=== PATIENT | female | born 1950 | race Caucasian/White ===

== ENCOUNTER 2017-08-05 18:39 | Inpatient (IN) | payer OTHER ==
[~2017-08-05] VITALS: Ht 165.1 cm; Wt 90.8 kg
[2017-08-05] MEDS ORDERED: ASPirin 325 MG TAB PO ONE (19:30)
[2017-08-05] MEDS ORDERED: METOPROLOL TARTRATE 50 MG TAB PO ONE (19:30)
[2017-08-05 19:45] LABS: Basophils # (auto) 0 uL; Basophils % (auto) 0.2 % (0.0-2.0); Eosinophils # (auto) 0.2 uL; Eosinophils % (auto) 1.6 % (0.0-7.0); Hematocrit 44.4 % (36.0-46.0); Hemoglobin 15.3 g/dL (12.2-16.2); Lymphocytes # (auto) 3.5 uL; Lymphocytes % (auto) 33.4 % (10.0-50.0); Mean Corpuscular Hgb Conc. 34.5 g/dL (32.0-36.0); Mean Corpuscular Volume 98.5 fL (80.0-100.0); Monocytes # (auto) 0.6 uL; Monocytes % (auto) 5.3 % (0.0-12.0); Neutrophils # (auto) 6.2 uL; Neutrophils % (auto) 59.5 % (37.0-80.0); Nucleated Red Blood Cells % 0.2 %; Platelet Count (auto) 334 10^3/uL (140-450); Red Cell Distribution Width 13.8 % (11.8-14.3); White Blood Cell 10.4 10^3/uL (4.4-10.8)
[2017-08-05 19:53] LABS: INR 0.88 (0.9-1.15); Partial Thromboplastin Time 26.6 sec (22.64-33.71); Prothrombin Time 9.6 sec (9.37-12.3)
[2017-08-05 20:04] LABS: Alanine Aminotransferase 26 U/L (13-56); Albumin 3.7 g/dL (3.4-5.0); Alkaline Phosphatase 100 U/L (45-117); Anion Gap 10 (5-15); Aspartate Aminotransferase 22 U/L (15-37); BUN/Creatinine Ratio 15.4; Bilirubin, Total 0.3 mg/dL (0.2-1.0); Blood Urea Nitrogen 12 mg/dL (7-18); Calcium 8.8 mg/dL (8.5-10.1); Carbon Dioxide 22 mmol/L (21-32); Chloride 107 mmol/L (98-107); GFR African American 94 mL/min; GFR Non-African American 78 mL/min; Glucose 151 mg/dL (74-106); Magnesium 2.4 mg/dL (1.6-2.6); Sodium 139 mmol/L (136-145); Total Protein 7.9 g/dL (6.4-8.2)
[2017-08-05] MEDS ORDERED: ACETAMINOPHEN 325 MG TAB PO PRN (22:00)
[2017-08-05] MEDS ORDERED: NITROGLYCERIN 0.4 MG SL TAB SL PRN (22:00)
[2017-08-05] MEDS ORDERED: METOPROLOL TARTRATE 25 MG TAB PO SCH (22:00)
[2017-08-05] MEDS ORDERED: TEMAZEPAM 15 MG CAP PO PRN (22:00)
[2017-08-05] MEDS ORDERED: ENOXAPARIN SOD 40 MG/0.4 ML SYRINGE SC ONE (22:00)
[2017-08-05] MEDS ORDERED: HYDROcodone-ACET 5/325MG TAB PO PRN (22:00)
[2017-08-05] MEDS ORDERED: ONDANSETRON HCL 4 MG/2 ML VIAL IV PRN (22:00)
[2017-08-05] MEDS ORDERED: MORPHINE SULFATE 10 MG/ML INJ 1ML SDV IV PRN (22:00)
[2017-08-05 22:22] LABS: Urine Bacteria NONE SEEN /hpf (None Seen); Urine Blood TRACE /uL (Negative); Urine Mucus FEW (None Seen); Urine Specific Gravity 1.022 (1.001-1.035); Urine WBC 2 /hpf (0 - 5)
[2017-08-06] MEDS: FAMOTIDINE 20 MG TAB PO SCH ×3 (00:06→21:45)
[2017-08-06 02:38] LABS: Basophils # (auto) 0.1 uL; Eosinophils # (auto) 0.2 uL; Hematocrit 41.1 % (36.0-46.0); Hemoglobin 13.9 g/dL (12.2-16.2); Lymphocytes # (auto) 3.8 uL; Lymphocytes % (auto) 38.9 % (10.0-50.0); Mean Corpuscular Hgb Conc. 33.7 g/dL (32.0-36.0); Mean Corpuscular Volume 97.9 fL (80.0-100.0); Monocytes # (auto) 0.5 uL; Monocytes % (auto) 5.4 % (0.0-12.0); Neutrophils # (auto) 5.1 uL; Neutrophils % (auto) 52.7 % (37.0-80.0); Nucleated Red Blood Cells % 0.1 %; Platelet Count (auto) 291 10^3/uL (140-450); Red Cell Distribution Width 13.4 % (11.8-14.3); White Blood Cell 9.8 10^3/uL (4.4-10.8)
[2017-08-06 02:55] LABS: Albumin 3.2 g/dL (3.4-5.0); BUN/Creatinine Ratio 15.8; Potassium 4.1 mmol/L (3.5-5.1)
[2017-08-06 02:58] LABS: Bilirubin, Total 0.5 mg/dL (0.2-1.0); Total Protein 6.3 g/dL (6.4-8.2)
[2017-08-06] MEDS: METOPROLOL TARTRATE 25 MG TAB PO SCH ×2 (10:00→21:44)
[2017-08-06] MEDS: ENOXAPARIN SOD 40 MG/0.4 ML SYRINGE SC SCH (10:00)
[2017-08-06] MEDS: ASPirin 81 mg TAB PO SCH (10:00)
[2017-08-06 17:00] VITALS: BP 116/68
[2017-08-06] MEDS ORDERED: SERT-138 PO (17:14)
[2017-08-06] MEDS: NICOTINE 14 MG/24HR TOPICAL PATCH TD SCH (17:25)
[2017-08-06 21:27] VITALS: BP 133/61
[2017-08-06] MEDS ORDERED: SERTRALINE HCL 50 MG TAB PO SCH (22:00)
[2017-08-07 05:22] VITALS: BP 107/55
[2017-08-07 09:00] VITALS: BP 122/43
[2017-08-07] MEDS: ASPirin 81 mg TAB PO SCH (09:39)
[2017-08-07] MEDS: METOPROLOL TARTRATE 25 MG TAB PO SCH (09:42)
[2017-08-07] MEDS: FAMOTIDINE 20 MG TAB PO SCH (09:42)
[2017-08-07] MEDS: ENOXAPARIN SOD 40 MG/0.4 ML SYRINGE SC SCH (09:42)
[2017-08-07] MEDS: NICOTINE 14 MG/24HR TOPICAL PATCH TD SCH (09:43)
[2017-08-07 10:58] VITALS: BP 122/43
== END 2017-08-07 13:00 | disposition home or self-care (01) | DRG 310 ==
LOC: ER 18:49 → TELE 18:50 → TELE-E-ADS 08-06 07:58 → TELE-WESTW 08-06 14:50
PROVIDERS: ADMIT Nurse Practitioner; ATTEND Internal Medicine
DX: I48.91 Unspecified atrial fibrillation (principal); J44.9 Chronic obstructive pulmonary disease, unspecified; E66.9 Obesity, unspecified; F17.210 Nicotine dependence, cigarettes, uncomplicated; Z68.33 Body mass index [BMI] 33.0-33.9, adult
CPT/HCPCS: 36415; 71020; 80053; 81001; 83735; 83880; 84443; 84484; 85025; 85610; 85730; 93005; 93306

== ENCOUNTER 2019-01-03 13:47 | Emergency (ER) | payer OTHER ==
[~2019-01-03] VITALS: Ht 162.6 cm; Wt 90.7 kg
[~2019-01-03 13:47] MED LIST: SERT-138 PO
[2019-01-03 15:01] LABS: Basophils # (auto) 0.1 uL; Basophils % (auto) 0.9 % (0.0-2.0); Eosinophils # (auto) 0.2 uL; Eosinophils % (auto) 3.1 % (0.0-7.0); Hematocrit 45.8 % (36.0-46.0); Hemoglobin 15.4 g/dL (12.2-16.2); Mean Corpuscular Hemoglobin 33.3 pg (28.0-32.0); Mean Corpuscular Hgb Conc. 33.6 g/dL (32.0-36.0); Mean Corpuscular Volume 98.9 fL (80.0-100.0); Monocytes # (auto) 0.4 uL; Monocytes % (auto) 5.6 % (0.0-12.0); Neutrophils # (auto) 4.7 uL; Neutrophils % (auto) 63.4 % (37.0-80.0); Nucleated Red Blood Cells % 0.1 %; Platelet Count (auto) 339 10^3/uL (140-450); Red Blood Cells 4.63 10^6/uL (4.0-5.20); Red Cell Distribution Width 13.7 % (11.8-14.3); White Blood Cell 7.4 10^3/uL (4.4-10.8)
[2019-01-03 15:14] LABS: Chloride 103 mmol/L (98-107); Potassium 4.7 mmol/L (3.5-5.1); Sodium 137 mmol/L (136-145)
[2019-01-03 15:25] LABS: Alanine Aminotransferase 28 U/L (13-56); Alkaline Phosphatase 94 U/L (45-117); Anion Gap 10 (5-15); Aspartate Aminotransferase 21 U/L (15-37); BUN/Creatinine Ratio 13.1; Bilirubin, Total 0.3 mg/dL (0.2-1.0); Blood Urea Nitrogen 13 mg/dL (7-18); Calcium 9.2 mg/dL (8.5-10.1); Carbon Dioxide 24 mmol/L (21-32); GFR African American 72 mL/min; GFR Non-African American 59 mL/min; Glucose 108 mg/dL (74-106); Magnesium 2.6 mg/dL (1.6-2.6); Total Protein 8.1 g/dL (6.4-8.2)
[2019-01-03 17:03] LABS: Urine Bacteria NONE SEEN /hpf (None Seen); Urine Blood Negative /uL (Negative); Urine Mucus FEW (None Seen); Urine WBC 1 /hpf (0 - 5)
[2019-01-03 17:12] VITALS: BP 113/65
== END 2019-01-03 18:08 | disposition home or self-care (01) ==
LOC: ER 13:47
DX: R10.31 Right lower quadrant pain (principal); R10.32 Left lower quadrant pain; F17.210 Nicotine dependence, cigarettes, uncomplicated; Z79.899 Other long term (current) drug therapy
CPT/HCPCS: 36415; 74176; 80053; 81001; 83690; 83735; 84484; 85025

== ENCOUNTER 2019-11-07 00:45 | Emergency (ER) | payer OTHER ==
[~2019-11-07] VITALS: Ht 162.6 cm; Wt 95.3 kg
[~2019-11-07 00:45] MED LIST changes: -SERT-138 PO; +SERT50TA PO
[2019-11-07 01:44] LABS: Basophils # (auto) 0 uL; Basophils % (auto) 0.4 % (0.0-2.0); Eosinophils # (auto) 0.2 uL; Hematocrit 44.8 % (36.0-46.0); Hemoglobin 15.2 g/dL (12.2-16.2); Lymphocytes # (auto) 2.9 uL; Lymphocytes % (auto) 31.9 % (10.0-50.0); Mean Corpuscular Hemoglobin 33.8 pg (28.0-32.0); Mean Corpuscular Hgb Conc. 33.9 g/dL (32.0-36.0); Mean Corpuscular Volume 99.5 fL (80.0-100.0); Monocytes # (auto) 0.4 uL; Monocytes % (auto) 3.9 % (0.0-12.0); Neutrophils # (auto) 5.7 uL; Neutrophils % (auto) 61.8 % (37.0-80.0); Nucleated Red Blood Cells % 0.1 %; Platelet Count (auto) 317 10^3/uL (140-450); Red Cell Distribution Width 13.6 % (11.8-14.3); White Blood Cell 9.2 10^3/uL (4.4-10.8)
[2019-11-07 01:59] LABS: Albumin 3.5 g/dL (3.4-5.0); Anion Gap 10 (5-15); BUN/Creatinine Ratio 14.9; Blood Urea Nitrogen 13 mg/dL (7-18); Calcium 9.2 mg/dL (8.5-10.1); Carbon Dioxide 22 mmol/L (21-32); Chloride 104 mmol/L (98-107); GFR African American 83 mL/min; GFR Non-African American 68 mL/min; Glucose 158 mg/dL (74-106); INR 0.93 (0.9-1.15); Magnesium 1.8 mg/dL (1.6-2.6); Partial Thromboplastin Time 25.1 sec (23.64-32.05); Potassium 3.7 mmol/L (3.5-5.1); Sodium 136 mmol/L (136-145)
[2019-11-07 02:05] LABS: Alanine Aminotransferase 20 U/L (13-56); Alkaline Phosphatase 96 U/L (45-117); Aspartate Aminotransferase 15 U/L (15-37); Bilirubin, Total 0.2 mg/dL (0.2-1.0); Total Protein 7.6 g/dL (6.4-8.2)
[2019-11-07] MEDS ORDERED: SODIUM CHLORIDE 0.9% 1,000 ML IV SCH (03:38)
[2019-11-07] MEDS ORDERED: ONDANSETRON HCL 4 MG/2 ML VIAL IV PRN (03:45)
[2019-11-07] MEDS ORDERED: IPRATROPIUM BROM 0.5 MG/2.5ML INH SOL NEB PRN (03:45)
[2019-11-07] MEDS ORDERED: MORPHINE SULF INJ 2 MG/ML SYRINGE 1ML IV PRN (03:45)
[2019-11-07] MEDS ORDERED: NITROGLYCERIN 0.4 MG SL TAB SL PRN ×2 (03:45)
[2019-11-07] MEDS ORDERED: ALBUTEROL SULF 2.5 MG/0.5ML(0.5%) NEB SOLN NEB PRN (03:45)
[2019-11-07] MEDS ORDERED: ACETAMINOPHEN 325 MG TAB PO PRN (03:45)
[2019-11-07] MEDS ORDERED: METOPROLOL TARTRATE 1MG/1ML-5ML VIAL IV ONE (03:45)
[2019-11-07 04:00] VITALS: BP 102/56
[2019-11-07] MEDS ORDERED: METOPROLOL TARTRATE 25 MG TAB PO SCH (10:00)
[2019-11-07] MEDS ORDERED: LISINOPRIL 10 MG TAB PO SCH (10:00)
[2019-11-07] MEDS ORDERED: DOCUSATE SOD 100 MG CAP PO SCH (10:00)
[2019-11-07] MEDS ORDERED: CLOPIDOGREL BISULFATE 75 MG TAB PO SCH (10:00)
[2019-11-07] MEDS ORDERED: ASPirin 81 mg TAB PO SCH (10:00)
[2019-11-07] MEDS ORDERED: ATORVASTATIN 20 MG TAB PO SCH (22:00)
[2019-11-07] MEDS ORDERED: SERTRALINE HCL 50 MG TAB PO SCH (22:00)
== END 2019-11-07 06:16 | disposition left against medical advice (07) ==
LOC: ER 00:46 → TELE 00:47 → UNDOADMIN 00:47 → ER 06:16
DX: I48.20 Chronic atrial fibrillation, unspecified (principal); R07.89 Other chest pain; R06.02 Shortness of breath; J44.9 Chronic obstructive pulmonary disease, unspecified; F17.210 Nicotine dependence, cigarettes, uncomplicated
CPT/HCPCS: 36415; 71045; 80053; 83735; 83880; 84443; 84484; 85025; 85610; 85730